=== PATIENT | female | born 1965 | race Hispanic/Latino ===

== ENCOUNTER → 2018-10-18 | Outpatient (CLI) | payer BC ==
[~2018-10-18] MED LIST: GADOBENATE DIMEGLUMINE 1 ML IV ONE; IOPAMIDOL 300 MG/ML 15ML VIAL IT ONE; METFORMIN HCL500 MG PO
--- NOTE | 2018-10-18 15:02 | Diagnostic Imaging Report ---
TECHNIQUE: Magnetic resonance imaging of the RIGHT SHOULDER was performed after intra-articular injection of contrast. Per request, the protocol was optimized to evaluate intra-articular structures. Motion artifact partially limits sensitivity and specificity of the exam. HISTORY: SLAP TEAR RIGHT SHOULDER COMPARISON: Right shoulder radiographs October 18, 2018. FINDINGS: MUSCLES AND TENDONS: Rotator Cuff: Tendons: Supraspinatus and Infraspinatus: Low-grade articular sided attenuation and irregularity of the anterior supraspinatus and conjoined tendons. High-grade bursal sided partial-thickness tearing of the conjoined tendon. No complete tear or tendon retraction. Teres Minor: Intact Subscapularis: Intact Muscles: No focal muscle atrophy. Biceps Tendon: The long head of the biceps tendon is intact and within the intertubercular groove. GLENOHUMERAL JOINT: Glenoid Labrum: Mild attenuation of the posterosuperior labrum, without a discrete tear or detachment.. Articular Cartilage: No focal defect. Joint Fluid: Intra-articular contrast. ACROMIOCLAVICULAR JOINT: Mild hypertrophic degenerative changes of the acromioclavicular joint. No effusion. BONE: The acromion is unremarkable. The bone marrow signal is heterogeneous, compatible with red marrow conversion, no specific evidence of a focal bone marrow replacing abnormality. No acute fracture. SOFT TISSUES: Otherwise, unremarkable. IMPRESSION: 1. High-grade, partial-thickness tearing of the conjoined supraspinatus and infraspinatus tendons. 2. Mild degenerative attenuation and fraying of the posterosuperior labrum. 3. 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 Signed by: Dr. Cristian Boss D.O., M.M.M. on 10/18/2018 2:59 PM
--- NOTE | 2018-10-18 15:58 | Diagnostic Imaging Report ---
Examination: Right shoulder arthrogram. Clinical indication: Right shoulder pain, suspected SLAP tear Comparison examination: None available. Fluoroscopy time: 0.5 minutes Total dose 5.3 mGy Procedure in detail: Jack Strip Assembler radiograph shows no acute osseous abnormalities, with well-maintained glenohumeral and acromioclavicular joints. Minimal undersurface osteophytosis of the acromioclavicular joint. Informed consent for the procedure was obtained and documented in the medical record after discussion of risks and benefits. The patient was placed in the supine position on the fluoroscopic table with the forearm supinated. The skin overlying the anterior shoulder was prepped and draped in the standard sterile fashion. A suitable percutaneous approach to the superomedial humeral head was identified and 1% lidocaine was infiltrated into the skin and subcutaneous tissues for local anesthesia. Then under intermittent fluoroscopic guidance, a 21-gauge spinal needle was advanced to the surface of the humeral head. The stylette was removed. Then, a total 2 cc dilute Isovue-300 were injected into the joint with sales representative facility services fluoroscopic images stored. Subsequently, 9 cc of a mixture of gadolinium contrast material and sterile saline was slowly injected into the joint. The needle was removed. A sterile dressing was applied. Findings: No egress of contrast into the subacromial space to suggest full-thickness rotator cuff tear. Impression: Successful intra-articular injection of gadolinium contrast material for MRI of the right shoulder, subsequently performed and separately reported. Signed by: Dr. Mc Guy M.D. on 10/18/2018 3:55 PM
--- NOTE | 2018-10-18 15:58 | Diagnostic Imaging Report ---
Examination: Right shoulder arthrogram. Clinical indication: Right shoulder pain, suspected SLAP tear Comparison examination: None available. Fluoroscopy time: 0.5 minutes Total dose 5.3 mGy Procedure in detail: Entertainment Manager radiograph shows no acute osseous abnormalities, with well-maintained glenohumeral and acromioclavicular joints. Minimal undersurface osteophytosis of the acromioclavicular joint. Informed consent for the procedure was obtained and documented in the medical record after discussion of risks and benefits. The patient was placed in the supine position on the fluoroscopic table with the forearm supinated. The skin overlying the anterior shoulder was prepped and draped in the standard sterile fashion. A suitable percutaneous approach to the superomedial humeral head was identified and 1% lidocaine was infiltrated into the skin and subcutaneous tissues for local anesthesia. Then under intermittent fluoroscopic guidance, a 21-gauge spinal needle was advanced to the surface of the humeral head. The stylette was removed. Then, a total 2 cc dilute Isovue-300 were injected into the joint with manufacturer's service representative fluoroscopic images stored. Subsequently, 9 cc of a mixture of gadolinium contrast material and sterile saline was slowly injected into the joint. The needle was removed. A sterile dressing was applied. Findings: No egress of contrast into the subacromial space to suggest full-thickness rotator cuff tear. Impression: Successful intra-articular injection of gadolinium contrast material for MRI of the right shoulder, subsequently performed and separately reported. Signed by: Dr. Mc Guy M.D. on 10/18/2018 3:55 PM
== END ==
LOC: DX 12:23
PROVIDERS: ATTEND Specialist
DX: S43.431A Superior glenoid labrum lesion of right shoulder, initial encounter (principal)
CPT/HCPCS: 23350; 73222; 77002; A9577; Q9967

== ENCOUNTER 2018-11-05 16:32 | Emergency (ER) | payer BC ==
[~2018-11-05] VITALS: Ht 162.6 cm; Wt 77.6 kg
[~2018-11-05 16:32] MED LIST changes: -GADOBENATE DIMEGLUMINE 1 ML IV ONE; -IOPAMIDOL 300 MG/ML 15ML VIAL IT ONE
--- OUTSIDE RECORDS SUMMARY | 2018-11-05 16:37 | XMS REPORT ---
Author Author [facility] Address Unknown Phone Unavailable Care Team Providers Care High Worker Name Role Phone MICHELET PAZ Unavailable Unavailable Problems This patient has no known problems. Allergies, Adverse Reactions, Alerts This patient has no known allergies or adverse reactions. Medications This patient has no known medications. Results Test Description Test Time Test Comments Text Results Atomic Results Result Comments FLURO GUIDE NEEDLE PLCMNT/INJ 2018-10-18 15:50:00 [place] [address] Patient Name: MONA MEANS MR #: [id number] : 1965 Age/Sex: 53/F Req #: [id number] Adm Physician: Ordered by: MICHELET PAZ MD Report #: [id number] Location: DX Room/Bed: Procedure: [id number] IR/FLURO GUIDE NEEDLE PLCMNT/INJ Exam Date: 10/18/18 Exam Time: 1300 REPORT STATUS: Signed Examination: Right shoulder arthrogram. Clinical indication: Right shoulder pain, suspected SLAP tear Comparison examination: None available. Fluoroscopy time: 0.5 minutes Total dose 5.3 mGy Procedure in detail: Post Graduate Internship radiograph shows no acute osseous abnormalities, with well-maintained glenohumeral and acromioclavicular joints. Minimal undersurface osteophytosis of the acromioclavicular joint. Inform ed consent for the procedure was obtained and documented in the medical record after discussion of risks and benefits. The patient was placed in the supine position on the fluoroscopic table with the forearm supinated. The skin overlying the anterior shoulder was prepped and draped in the standard sterile fashion. A suitable percutaneous approach to the superomedial humeral head was identified and 1% lidocaine was infiltrated into the skin and subcutaneous tissues for local anesthesia. Then under intermittent fluoroscopic guidance, a 21-gauge spinal needle was advanced to the surface of the humeral head. The stylette was removed. Then, a total 2 cc dilute Isovue-300 were injected into the joint with assisted sales representative fluoroscopic images stored. Subsequently, 9 cc of a mixture of gadolinium contrast material and sterile saline was slowly injected into the joint. The needle was removed. A sterile dressing was applied. Findings: No egress of contrast into the subacromial space to suggest full-thickness rotator cuff tear. Impression: Successful intra-articular injection of gadolinium contrast material for MRI of the right shoulder, subsequently performed and separately reported. Signed by: Dr. Ashly Mendoza M.D. on 10/18/2018 3:55 PM Dictated By: ASHLY MENDOZA MD [id number] Transcribed By: KATINA on 10/18/18 [id number] COPY TO: MICHELET PAZ MD INJECTION ARTHROGRAM SHOULDER 2018-10-18 15:50:00 [place] [address] Patient Name: MONA MEANS MR #: [id number] : 1965 Age/Sex: 53/F Req #: [id number] Adm Physician: Ordered by: MICHELET PAZ MD Report #: [id number] Location: DX Room/Bed: Procedure: [id number] IR/INJECTION ARTHROGRAM SHOULDER Exam Date: 10/18/18 Exam Time: 1300 REPORT STATUS: Signed Examination: Right shoulder arthrogram. Clinical indication: Right shoulder pain, suspected SLAP tear Comparison examination: None available. Fluoroscopy time: 0.5 minutes Total dose 5.3 mGy Procedure in detail: Post Graduate Internship radiograph shows no acute osseous abnormalities, with well-maintained glenohumeral and acromioclavicular joints. Minimal undersurface osteophytosis of the acromioclavicular joint. Inform ed consent for the procedure was obtained and documented in the medical record after discussion of risks and benefits. The patient was placed in the supine position on the fluoroscopic table with the forearm supinated. The skin overlying the anterior shoulder was prepped and draped in the standard sterile fashion. A suitable percutaneous approach to the superomedial humeral head was identified and 1% lidocaine was infiltrated into the skin and subcutaneous tissues for local anesthesia. Then under intermittent fluoroscopic guidance, a 21-gauge spinal needle was advanced to the surface of the humeral head. The stylette was removed. Then, a total 2 cc dilute Isovue-300 were injected into the joint with assisted sales representative fluoroscopic images stored. Subsequently, 9 cc of a mixture of gadolinium contrast material and sterile saline was slowly injected into the joint. The needle was removed. A sterile dressing was applied. Findings: No egress of contrast into the subacromial space to suggest full-thickness rotator cuff tear. Impression: Successful intra-articular injection of gadolinium contrast material for MRI of the right shoulder, subsequently performed and separately reported. Signed by: Dr. Ashly Mendoza M.D. on 10/18/2018 3:55 PM Dictated By: ASHLY MENDOZA MD [id number] Transcribed By: KATINA on 10/18/18 [id number] COPY TO: MICHELET PAZ MD MRI SHOULDER RIGHT W 2018-10-18 14:48:00 [place] [address] Patient Name: MONA MEANS MR #: [id number] : 1965 Age/Sex: 53/F [facility] #: [id number] [facility] Physician: Ordered by: MICHELET PAZ MD Report #: [id number] Location: DX Room/Bed: Procedure: [id number] MRI/MRI SHOULDER RIGHT W Exam Date: Exam Time: REPORT STATUS: Signed TECHNIQUE: Magnetic resonance imaging of the RIGHT SHOULDER was performed after intra-articular injection of contrast. Per request, the protocol was optimized to evaluate intra-articular structures. Motion artifact partially limits sensitivity and specificity of the exam. HISTORY: SLAP TEAR RIGHT SHOULDER COMPARISON: Right shoulder radiographs October 18, 2018. FINDINGS: MUSCLES AND TENDONS: Rotator Cuff: Tendons: Supraspina tus and Infraspinatus: Low-grade articular sided attenuation and irregularity of the anterior supraspinatus and conjoined tendons. High-grade bursal sided partial-thickness tearing of the conjoined tendon. No complete tear or tendon retraction. Teres Minor: Intact Subscapularis: Intact Muscles: No focal muscle atrophy. Biceps Tendon: The long head of the biceps tendon is intact and within the intertubercular groove. GLENOHUMERAL JOINT: Glenoid Labrum: Mild attenuation of the posterosuperior labrum, without a discrete tear or detachment.. Articular Cartilage: No focal defect. Joint Fluid: Intra-articular contrast. ACROMIOCLAVICULAR JOINT: Mild hypertrophic degenerative changes of the acromioclavicular joint. No effusion. BONE: The acromion is unremarkable. The bone marrow signal is heterogeneous, compatible with red marrow conversion, no specific evidence of a focal bone marrow replacing abnormality. No acute fracture. SOFT TISSUES: Otherwise, unremarkable. IMPRESSION: 1. High-grade, partial-thickness tearing of the conjoined supraspinatus and infraspinatus tendons. 2. Mild degenerative attenuation and fraying of the posterosuperior labrum. 3. 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 Signed by: Dr. Sugey Boss D.O., M.M.M. on 10/18/2018 2:59 PM Dictated By: SUGEY BOSS DO 58 Transcribed By: KATINA on 10/18/181458 COPY TO: MICHELET PAZ MD
--- NOTE | 2018-11-05 17:05 | NUR ---
GAVE PT ICE PACK AND TYLENOL PT STATED SHE COULD TAKE TYLENOL AT HOME AND ASKED IF SHE WAS GOING TO GET ANY OTHER TESTING DONE, I EXPLAINED TO THE PT THAT THE DOCTOR HAS TO ORDER TEST AND THAT SHE WOULD BE IN SOON TO SEE HER. PT GOT VERY ANGRY AND WAS CUSSING TELLING ME SHE NEEDED TESTING ON HER HEAD DONE. I THEN EXPLAINED TO THE PATIENT THAT I COULD NOT ORDER ANY TEST THAT THE DOCTOR WOULD BE IN TO SEE HER AND ORDER TESTING THAT SHE FELT WAS APPROPRIATE. PT THEN BECAME EVEN MORE ANGRY AND GOT UP CUSSING ME OUT IN [place]OLAN AND LEFT.
== END 2018-11-05 17:10 | disposition short-term general hospital (02) ==
LOC: FSED 16:32
DX: M25.511 Pain in right shoulder (principal)

== ENCOUNTER → 2018-11-13 | Day surgery (SDC) | payer BC ==
[2018-11-07 17:17] LABS: ANION GAP 11.6 mmol/L (8-16); BLOOD UREA NITROGEN 14 mg/dL (7-26); BUN/CREATININE RATIO 17 (6-25); CALCIUM 9.6 mg/dL (8.4-10.2); CARBON DIOXIDE 27 mmol/L (22-29); CHLORIDE 102 mmol/L (98-107); CREATININE, SERUM 0.81 mg/dL (0.57-1.11); EST GLOMERULAR FILTRATION RATE > 60 ML/MIN (60-); GLUCOSE 139 mg/dL (74-118); POTASSIUM 3.6 mmol/L (3.5-5.1); SODIUM 137 mmol/L (136-145)
[~2018-11-13] MED LIST changes: +BUPIVACAINE HCL 0.5% INJ 30 ML VIAL INJ ONE; +CEFAZOLIN SOD 2 GM/D5W 50ML 50 ML IV ONE; +DEXAMETHASONE SOD PHOS INJ 4 MG/ML VIAL ONE; +EPINEPHRINE HCL 1:1000 1ML 1 MG/ML AMP ONE; +FENTANYL CITRATE/PF 100MCG/2 ML INJ ONE; +GLYCOPYRROLATE INJ 1MG/ 5 ML SYR ONE; +LIDOCAINE HCL 2% JELLY 5 ML TUBE ONE; +LIDOCAINE HCL 2% LOCAL INJ 5 ML SDV VIAL INJ ONE; +MIDAZOLAM HCL 2 MG/2 ML VIAL ONE; +NEOSTIGMINE 5 MG/5ML SYR ONE; +ONDANSETRON HCL INJ 2MG/ML 2ML 2 MG/ML VIAL ONE; +PROPOFOL IV EMULSION 10 MG/ML 20 ML VIAL ONE; +ROCURONIUM BROMIDE 10 MG/ML 5ML VIAL ONE; +SEVOFLURANE INHAL SOLN 250 ML PEN BTL ONE
[2018-11-13 13:00] VITALS: BP 120/77
--- NOTE | 2018-11-14 18:46 | Operative Report ---
DATE OF PROCEDURE: 11/13/2018 SURGEON: Shawn Hernadez MD PREOPERATIVE DIAGNOSIS: Right shoulder rotator cuff tear. POSTOPERATIVE DIAGNOSES: Right shoulder synovitis, right shoulder rotator cuff tear. OPERATIONS AND PROCEDURE PERFORMED: The patient underwent a right shoulder examination under anesthesia, right shoulder arthroscopy, right shoulder arthroscopic debridement of synovitis, right shoulder arthroscopic rotator cuff reconstruction, right shoulder arthroscopic subacromial decompression and acromioplasty. STEWARD/STEWARDESS BATH: Diane Mistry. ANESTHESIA: General endotracheal intubation anesthesia. IV FLUIDS: Per anesthesia record. BRIEF DISCUSSION OF THE PATIENT'S OPERATIVE PROCEDURE: Ms. Sánchez was taken to the operating room, placed in the supine position on the operating table. Following induction of general anesthesia as well as the endotracheal intubation, the patient's chair was converted to beach chair type position. Examination of the patient's right shoulder demonstrated full passive range of motion of the shoulder joint. There was no evidence of instability. The patient's right shoulder and upper extremity were prepped and draped in standard surgical fashion. Standard posterior lateral and anterior portals were created without difficulty. The scope was placed within the shoulder atraumatically. Examination of the glenohumeral articulation demonstrated no significant evidence of arthritis. There were no loose bodies in the shoulder joint. There was however synovitis in the shoulder. The biceps tendon was found to be contained within the shoulder joint. A shaver was placed in the shoulder joint and the synovitis was debrided. Examination of the articular surface of the rotator cuff demonstrated thinning but no evidence of full-thickness tearing. The shoulder was inflated with sterile normal saline. The scope was placed in subacromial space and there was significant bursal inflammation encountered. A lateral portal was created through an outside in technique. A shaver was placed in the shoulder joint and a bursectomy was performed. Examination of the rotator cuff tissue demonstrated a large partial-thickness rotator cuff tear. The tendon was also found to be delaminated with retraction of a large portion of the torn rotator cuff. A shaver was used to debride the insertion site. The remaining attached rotator cuff was elevated. The intratendinous portion of the rotator cuff was also debrided at this time. An accessory anterolateral portal was created without difficulty. A triple loaded suture anchor was then inserted into the greater tuberosity. Using a grasper through one of the portals and the scorpion suture passer through a separate portal. The delaminated portion of the tendon was drawn forward and then full thickness bites of the rotator cuff tendon were then captured using the suture from the suture anchor. This allowed for advancement of the delaminated portion of the rotator cuff tendon into its normal insertion site on the greater tuberosity. The tissue was tied firmly over the tuberosity creating caodaism of the rotator cuff integrity. The patient had a very downward sloping lateral acromion in the region of the tear. The coracoacromial ligament was resected. The bursectomy was completed and an acromioplasty was performed. The shoulder was then placed through range of motion. There was no evidence of impingement. The shoulder was deflated with sterile normal saline. Sterile dressings were applied and the patient was provided a shoulder immobilizer, awakened, and taken to the postanesthesia care in stable condition. MD HARPER Balderas/VIMAL /[id number]
== END | disposition home or self-care (01) ==
LOC: OR 05:55
PROVIDERS: ATTEND Specialist
DX: M75.111 Incomplete rotator cuff tear or rupture of right shoulder, not specified as traumatic (principal); M65.811 Other synovitis and tenosynovitis, right shoulder; E11.9 Type 2 diabetes mellitus without complications; F17.210 Nicotine dependence, cigarettes, uncomplicated; Z01.810 Encounter for preprocedural cardiovascular examination; Z01.812 Encounter for preprocedural laboratory examination; Z79.84 Long term (current) use of oral hypoglycemic drugs
CPT/HCPCS: 29826; 29827; 36415 ×2; 80048; 82948; 93005; J0171; J0690; J1100; J2001 ×2; J2250; J2405; J2704; J3490

== ENCOUNTER 2019-02-11 15:57 | Outpatient (RCR) | payer BC ==
[~2019-02-11 15:57] MED LIST changes: -BUPIVACAINE HCL 0.5% INJ 30 ML VIAL INJ ONE; -CEFAZOLIN SOD 2 GM/D5W 50ML 50 ML IV ONE; -DEXAMETHASONE SOD PHOS INJ 4 MG/ML VIAL ONE; -EPINEPHRINE HCL 1:1000 1ML 1 MG/ML AMP ONE; -FENTANYL CITRATE/PF 100MCG/2 ML INJ ONE; -GLYCOPYRROLATE INJ 1MG/ 5 ML SYR ONE; -LIDOCAINE HCL 2% JELLY 5 ML TUBE ONE; -LIDOCAINE HCL 2% LOCAL INJ 5 ML SDV VIAL INJ ONE; -MIDAZOLAM HCL 2 MG/2 ML VIAL ONE; -NEOSTIGMINE 5 MG/5ML SYR ONE; -ONDANSETRON HCL INJ 2MG/ML 2ML 2 MG/ML VIAL ONE; -PROPOFOL IV EMULSION 10 MG/ML 20 ML VIAL ONE; -ROCURONIUM BROMIDE 10 MG/ML 5ML VIAL ONE; -SEVOFLURANE INHAL SOLN 250 ML PEN BTL ONE
== END 2019-02-12 ==
LOC: PT 15:57
PROVIDERS: ATTEND Specialist
DX: M75.101 Unspecified rotator cuff tear or rupture of right shoulder, not specified as traumatic (principal); M62.81 Muscle weakness (generalized); M25.611 Stiffness of right shoulder, not elsewhere classified

== ENCOUNTER 2019-03-12 17:00 | Outpatient (RCR) | payer BC | END 2019-03-15 | LOC: PT 17:00 | PROVIDERS: ATTEND Specialist | DX: M75.101 Unspecified rotator cuff tear or rupture of right shoulder, not specified as traumatic (principal); M62.81 Muscle weakness (generalized); M25.611 Stiffness of right shoulder, not elsewhere classified | CPT/HCPCS: 97139 ==

== ENCOUNTER 2019-04-07 16:00 | Outpatient (RCR) | payer BC | END 2019-04-14 | LOC: PT 16:00 | PROVIDERS: ATTEND Specialist | DX: M75.101 Unspecified rotator cuff tear or rupture of right shoulder, not specified as traumatic (principal); M62.81 Muscle weakness (generalized); M25.611 Stiffness of right shoulder, not elsewhere classified ==